=== PATIENT | male | born 1950 | race Caucasian/White ===

== ENCOUNTER 2017-01-10 13:05 | Emergency (ER) | payer MEDICARE ==
[~2017-01-10] VITALS: Ht 180.3 cm; Wt 93.2 kg
[~2017-01-10 13:05] MED LIST: ALBU8.5H2 IH; HYDR30CR57 RC; LOSA1TAB69 PO; NABU500T PO; OMEG-38 PO; RISP1SOL PO; TERA5CAP6 PO
[2017-01-10 13:25] VITALS: BP 137/68; PULSE 52; RESP 18; O2SAT 96
--- NOTE | 2017-01-10 13:27 | ED.REPORT ---
HPI-General Illness Date of Service Jan 10, 2017 ED Provider: Dr. Dominguez Sánchez The patient is a 66 year old female with history of epilepsy who presents to the emergency department complaining of dizziness that began 2-3 weeks ago. His symptoms were much worse today and he has also experienced nausea. His symptoms are exacerbated with head movement. He denies problem walking, visual changes, numbness, weakness, chest pain, shortness of breath, abdominal pain or diarrhea. He is recently discontinued carbamazepine and started Keppra. This change was made to prevent a potential side effect of the carbamazepine. His last seizure was over 1 year ago. He denies any recent illnesses. Nursing Notes Stated Complaint: NAUSEA/DIZZY Chief Complaint: General Complaint Nursing Notes Reviewed: Yes Allergies: Coded Allergies: No Known Drug Intolerances (Verified Allergy, Unknown, 02/10/15) Scheduled Losartan/HCTZ 50-12.5 mg (Losartan/HCTZ 50-12.5 mg) 1 Each Tablet 1 EACH PO DAILY Nabumetone (Nabumetone) 500 Mg Tablet 500 MG PO DAILY Risperidone (Risperidone) 1 Mg/1 Ml Solution 1 MG PO TID Terazosin (Terazosin) 5 Mg Capsule 5 MG PO HS Scheduled PRN Albuterol HFA (Proair HFA) 8.5 Gm Hfa.aer.ad 2 PUFFS IH Q4 PRN PRN For Shortness of Breath Miscellaneous Medications Hydrocortisone (Proctocream-Hc) 30 Gm Cream.appl 30 GM RC [place]-3/Dha/Epa/Fish Oil (Fish Oil 1,000 mg Softgel) 1 Each Capsule 1 EACH PO General Time Seen by MD: 13:26 Chief Complaint Dizziness Hx Obtained From: Patient Arrived By: Walk-in Sudden in Onset?: No Onset Occurred: More than a week ago... Symptom Duration: Since onset Severity: Current: No pain currently Severity: Maximum: No pain Recent Healthcare: No recent hospitalization Similar Sx Previous: No Past Medical History Past Medical History Notes: Neurologist: Dr. Espinoza Past Medical History Epilepsy Bipolar disorder BPH with obstruction Hypertension Arthritis Family History Noncontributory Smoking History Never Smoker Social History Other Social History: Good social support, Local resident Ambulatory Status Independent Review of Systems Full Review of Systems Constitutional: Denies: Chills, Fever Ears / Nose / Throat: Denies: Nasal congestion Respiratory: Denies: Non-productive cough, Shortness of breath Cardiovascular: Denies: Chest pain GI: Reports: Nausea, Denies: Abdominal pain, Diarrhea Neurologic: Reports: Dizziness, Denies: Headache, Numbness, Problem walking, Vision change, Weakness Complete sys rev & neg: except as marked. Physical Exam Vital Signs Vital Signs Date Time Temp Pulse Resp B/P Pulse Ox O2 Delivery O2 Flow Rate FiO2 01/10/17 13:25 36.9 52 18 137/68 96 Room Air Initial VS: Reviewed Head / Eyes: Atraumatic, Normocephalic, PERRL Neck: Supple, Non-tender, Full range of motion Respiratory: Breath sounds normal, Clear to auscultation, No respiratory distress Cardiovascular: Regular rate & rhythm, Heart sounds normal, Intact distal pulses Abdomen / GI: Soft, Non-tender, No guarding, No rebound, No distention Lymphatic: No lymphadenopathy Extremities: Vascular intact, Neuro intact, No swelling, No tenderness Skin: Warm, Dry, No cyanosis Psychiatric: Mood/affect normal, Behavior normal, Normal thought content General/Constitutional: Awake, Alert, Cooperative ENT: Atraumatic, Airway patent, Mucous membranes moist, Tympanic membs NL, Ext aud canal NL, Mastoid area NL Neurologic: Oriented X3, Speech NL, No motor deficits, No sensory deficits, CN II - XII intact, Memory NL 5/5 strength to all 4 extremities. Vertigo with lateral movement of the head. Distinctly abnormal antalgic gait. Interpretation & Diagnostics Lab Results Interpretation Result Diagram: 01/10/17 1350 01/10/17 1350 Test 01/10/17 13:50 White Blood Count 9.1th/mm3 (3.8-10.1) Red Blood Count 4.60mil/mm3 (4.40-5.80) Hemoglobin 13.9g/dL (13.8-17.2) Hematocrit 41.3% (41.0-50.0) Mean Corpuscular Volume 89.8fL (81-100) Mean Corpuscular Hemoglobin 30.2pg (27.0-35.0) Mean Corpuscular Hemoglobin Concent 33.7% (32.0-37.0) Red Cell Distribution Width 12.6% (12.3-15.4) Platelet Count 193bil/L (150-400) Neutrophils (%) (Auto) 85.9% (40-74) Lymphocytes (%) (Auto) 8.7% (14-46) Monocytes (%) (Auto) 5.0% (4-12) Eosinophils (%) (Auto) 0% (0-5) Basophils (%) (Auto) 0.2% (0-3) Sodium Level 139mEq/L (134-144) Potassium Level 4.2mEq/L (3.5-5.2) Chloride Level 101mEq/L (97-108) Carbon Dioxide Level 22mmol/L (18-29) Blood Urea Nitrogen 18mg/dL (8-27) Creatinine 0.70mg/dL (0.76-1.27) Estimat Glomerular Filtration Rate 119mL/min (>59) Glucose Level 133mg/dL (60-99) Calcium Level 9.1mg/dL (8.5-10.1) Total Bilirubin 0.2mg/dL (0.0-1.2) Aspartate Amino Transf (AST/SGOT) 19U/L (0-50) Alanine Aminotransferase (ALT/SGPT) 19U/L (0-44) Alkaline Phosphatase 76U/L (25-160) Total Protein 6.4g/dL (6.4-8.4) Albumin 4.0g/dL (3.4-5.0) Hold [place] Top Tube Received (Received) ECG Interpretation ECG Interpretation: Sinus bradycardia with a rate of 49 Time: 13:51 Interpreted by: ED physician Re-Eval/Medical Decision Source of Hx: Old records Time of Eval: 14:09 Re-Evaluation/Progress Note: Unsteady on feet. Distinctly abnormal gait. Needs to hold on for balance. Will fall if I do not hold him up. Discussed plan for MRI. He understands and agrees with plan. Counseled Regarding: Diagnosis, Lab results Discharge & Departure Shift Change Sign-Out Patient Care Transferred: Yes Discussed Complaint(s): Yes Laboratory Evaluation: Lab evaluation discussed Imaging Studies: Imaging discussed (Awaiting MRI results. ) Primary Impression: Vertigo Disposition: Home Discharge Condition All VS Reviewed: Yes Condition: Stable Referrals: Jethro Bailey MD (PCP) Senait Espinoza MD Care Transferred to: Dr. Hook Care Transferred at: 15:00 Scribe Attestation Portions of this note were transcribed by Radha Bocanegra. I, Dr. Sánchez personally performed the history, physical exam and medical decision-making; I reviewed and confirmed the accuracy of the information in the transcribed note. Signed by: Walt Thomas, 01/10/2017 at 1430. copies to: Senait Espinoza MD; Jethro Bailey MD, Kirk H MD Jan 10, 2017 13:27 Radha Bocanegra Jan 10, 2017 13:30 Anjelica Yuan Jan 10, 2017 14:10 copies to: Senait Espinoza MD; Jethro Bailey MD, Kirk H MD Jan 10, 2017 13:27 Radha Bocanegra Jan 10, 2017 13:30 Anjelica Yuan Jan 10, 2017 14:10
[2017-01-10 13:56] LABS: BASOPHILS % (AUTO) 0.2 % (0-3); EOSINOPHILS % (AUTO) 0 % (0-5); Mean Corpuscular Hemoglobin 30.2 pg (27.0-35.0); Mean Corpuscular Volume 89.8 fL (81-100); NEUTROPHILS % (AUTO) 85.9 % (40-74); Platelet Count 193 bil/L (150-400)
[2017-01-10 15:30] VITALS: BP 141/68; PULSE 60; RESP 20; O2SAT 99
[2017-01-10 17:10] VITALS: BP 150/72; PULSE 63; O2SAT 94
--- NOTE | 2017-01-10 17:38 | DRSVH ---
PROCEDURE: MRI STROKE PROTOCOL ([id number]) Pre- and post-contrast brain MRI, non-contrast brain MR angiogram, pre- and postcontrast neck MR paddy ogram INDICATIONS: 66 year-old male with history of epilepsy presenting with dizziness for 2-3 weeks with w orsening today. TECHNIQUE: Brain: Noncontrast axial T1 spin echo, axial T2 fast spin echo, sagittal and axial FLAIR, coronal T2 fast spin echo, axial gradient echo, axial diffusion and ADC through the brain. After the administr ation of contrast, axial 3D VIBE of the cranial vasculature and brain. Brain MRA: Non-contrast 3-D time of flight MR angiogram, with multiple gjpsmdg-ieavwtnme-vyzjvsnalg (MIP) reformats performed. Neck MRA: Axial and sagittal TruFISP through the neck. Coronal dynamic MR angiogram during administ ration of contrast in the arterial and venous phases, with 3-dimenstional dyigypv-korhxxlys-gioppyank n (MIP) reformats constructed from subtraction images. COMPARISON: None. FINDINGS: Image quality: Excellent. BRAIN: CSF spaces: There is mild cerebral volume loss with prominence of the ventricles and sulci. Basal c isterns are patent. No extra-axial fluid collections. Brain: Diffusion weighted images demonstrate no acute infarcts. Gruber-white matter interface is pres erved. No intracranial hemorrhage, mass, or mass effect. There are bilateral foci of subcortical an d periventricular white matter T2 hyp at erintensity consistent with uqpl-yi-kahiffhq chronic small v essel ischemic changes. Brainstem appears normal. Normal intravascular flow voids are present. No a bnormal intracranial enhancement. Skull and face: Calvarial marrow signal is normal. Orbits appear normal. Sinuses: Sinuses and mastoids are clear. BRAIN MR ANGIOGRAM: Anterior circulation: Intracranial internal carotid arteries are normal in size and enhancement. Th e flow within the paired anterior cerebral arteries is normal and symmetric. The flow within the mid dle cerebral arteries is normal and symmetric. The anterior communicating artery is seen. No stenos es, occlusions, or aneurysms. Posterior circulation: The visualized portions of the vertebral arteries are patent bilaterally and join to form a normal appearing basilar artery. The flow within the posterior cerebral arteries is n ormal and symmetric. No high-grade stenoses, occlusions, or aneurysms. No focal caliber changes or definite interval flap to suggest dissection. NECK MR ANGIOGRAM: Carotids: Great vessels demonstrate conventional anatomy as they arise from the aortic arch. The or igins of the common carotid arteries appear patent. The calibers and courses of both common carotid arteries are normal. The bifurcation regions appear normal bilaterally. The carotid bulbs are widel y patent. The internal carotid arteries demonstrate normal course and caliber. Posterior circulation: The origins of the vertebral arteries appear patent. More superior portions of both vertebral arteries demonstrate normal course and caliber, and join to form a normal appearing basilar artery. No focal caliber change or definite high-grade stenosis. Miscellaneous: Subclavian arteries appear patent. Pre-contrast images through the neck show no soft tissue abnormalities. IMPRESSION: BRAIN MRI: 1. No evidence of infarct or other acute intracranial abnormality. 2. Mild to moderate chronic white matter small vessel ischemic changes and mild cerebral volume loss . BRAIN MR ANGIOGRAM: 1. No high-grade stenosis or occlusion of the central intracranial arteries. NECK MR ANGIOGRAM: 1. No high-grade stenosis or occlusion of the head and neck arteries. Specifically, the vertebral a rteries appear patent bilaterally without definite focal caliber change or other evidence of dissecti on. The estimate of stenosis included in the report of the imaging study was calculated using the NASCET method Dictated by: George Brasher M.D. on 01/10/2017 at 17:28 Approved by: George Brasher M.D. on 01/10/2017 at 17:36
[2017-01-10] MEDS ORDERED: MECL-114 PO (18:04)
[2017-01-10 18:14] VITALS: BP 170/76; PULSE 65; O2SAT 95
== END 2017-01-10 18:16 | disposition home or self-care (01) ==
LOC: SED 13:05
DX: R42 Dizziness and giddiness (principal); I67.82 Cerebral ischemia; G31.9 Degenerative disease of nervous system, unspecified; I10 Essential (primary) hypertension
CPT/HCPCS: 36415; 70549; 70553; 80053; 85025; 93005; 99284; A9585; G0463

== ENCOUNTER 2017-03-30 21:22 | Emergency (ER) | payer MEDICARE ==
[~2017-03-30] VITALS: Ht 180.3 cm; Wt 95.4 kg
[~2017-03-30 21:22] MED LIST changes: +MECL-114 PO
[2017-03-30 21:30] VITALS: BP 137/81; PULSE 61; RESP 17; O2SAT 95
--- NOTE | 2017-03-30 22:00 | ED.REPORT ---
HPI-General Illness Date of Service Mar 30, 2017 ED Provider: Sergo Armstrong MD A 67 year old male with a history of epilepsy, bipolar disorder and hypertension is brought to the ED via EMS due to seizures. Per pt's , he had several seizures today beginning at 14:25 and getting progressively worse throughout the day. He had several fairly severe seizures tonight while sitting in a chair. The pt does not remember these episodes but did not injure himself and denies diarrhea or fever. He had a medication change in 11/2016 from Carbamazepine to Keppra, but switched back to Carbamazepine three days ago due to side effects. He did not take his medication this morning. Nursing Notes Stated Complaint: SEIZURES Chief Complaint: Seizure Nursing Notes Reviewed: Yes Allergies: Coded Allergies: No Known Drug Intolerances (Verified Allergy, Unknown, 02/10/15) Scheduled Losartan/HCTZ 50-12.5 mg (Losartan/HCTZ 50-12.5 mg) 1 Each Tablet 1 EACH PO DAILY Nabumetone (Nabumetone) 500 Mg Tablet 500 MG PO DAILY Risperidone (Risperidone) 1 Mg/1 Ml Solution 1 MG PO TID Terazosin (Terazosin) 5 Mg Capsule 5 MG PO HS Scheduled PRN Albuterol HFA (Proair HFA) 8.5 Gm Hfa.aer.ad 2 PUFFS IH Q4 PRN PRN For Shortness of Breath Meclizine (Bonine) 25 Mg Tab.chew 25 MG PO ASDIRECTED PRN PRN For Dizziness Miscellaneous Medications Hydrocortisone (Proctocream-Hc) 30 Gm Cream.appl 30 GM RC [place]-3/Dha/Epa/Fish Oil (Fish Oil 1,000 mg Softgel) 1 Each Capsule 1 EACH PO General Time Seen by MD: 22:00 Chief Complaint Seizure Hx Obtained From: Patient, Spouse, EMS Arrived By: Ambulance Sudden in Onset?: Yes Onset Occurred: 5 - 8 hours ago Symptom Duration: Intermittent Recent Healthcare: Recent doctor visit, Recent hospitalization Similar Sx Previous: Yes Past Medical History Past Medical History Notes: Neurologist: Dr. Espinoza Past Medical History Epilepsy Bipolar disorder BPH with obstruction Hypertension Arthritis Past Surgical History Reports: Appendectomy Family History Noncontributory Smoking History Never Smoker Social History Other Social History: Good social support, , Local resident Ambulatory Status Independent Review of Systems Full Review of Systems Constitutional: Denies: Fever Respiratory: Denies: Non-productive cough, Shortness of breath Cardiovascular: Denies: Chest pain GI: Denies: Diarrhea, Vomiting Skin: Denies Rash Neurologic: Reports: Seizure Complete sys rev & neg: except as marked. Physical Exam Vital Signs Vital Signs Date Time Temp Pulse Resp B/P Pulse Ox O2 Delivery O2 Flow Rate FiO2 03/31/17 00:58 36.7 72 17 123/57 98 Room Air 03/30/17 22:55 36.7 57 17 128/68 95 Room Air 03/30/17 21:30 36.9 61 17 137/81 95 Room Air Initial VS: Reviewed General/Constitutional: Awake, Alert post ictal slightly confused Head / Eyes: Atraumatic, Normocephalic, PERRL, EOMI ENT: Atraumatic, Airway patent, Mucous membranes moist Neck: Atraumatic, Supple, Full range of motion Respiratory / Chest: Atraumatic, Breath sounds NL, Breath sounds = bilat, No respiratory distress Cardiovascular: Heart rate NL, Regular rhythm, Heart sounds NL Abdomen: Atraumatic, Soft, Non-tender Back: Atraumatic, Full range of motion Upper Extremities Upper Extremity / MS: Atraumatic, Full range of motion Lower Extremity / Pelvis / MS: Atraumatic, Full range of motion Skin: Atraumatic, Color NL, No rash, Warm, Dry Neurologic: No motor deficits, No sensory deficits post ictal Psychiatric: Mood NL Interpretation & Diagnostics Lab Results Interpretation Result Diagram: 03/30/17213903/30/172139 Test 03/30/17 21:40 03/30/17 22:55 03/30/17 23:16 White Blood Count 9.2th/mm3 (3.8-10.1) Red Blood Count 4.83mil/mm3 (4.40-5.80) Hemoglobin 14.8g/dL (13.8-17.2) Hematocrit 42.9% (41.0-50.0) Mean Corpuscular Volume 88.8fL (81-100) Mean Corpuscular Hemoglobin 30.6pg (27.0-35.0) Mean Corpuscular Hemoglobin Concent 34.5% (32.0-37.0) Red Cell Distribution Width 12.7% (12.3-15.4) Platelet Count 231bil/L (150-400) Neutrophils (%) (Auto) 62.4% (40-74) Lymphocytes (%) (Auto) 26.0% (14-46) Monocytes (%) (Auto) 9.2% (4-12) Eosinophils (%) (Auto) 1.6% (0-5) Basophils (%) (Auto) 0.4% (0-3) Hold Purple Top Tube Received (Received) Prothrombin Time 10.4sec (8.1-12.5) Prothromb Time International Ratio 0.97ratio Hold Blue Top Tube Received (Received) Sodium Level 139mEq/L (134-144) Potassium Level 4.0mEq/L (3.5-5.2) Chloride Level 99mEq/L (97-108) Carbon Dioxide Level 22mmol/L (18-29) Blood Urea Nitrogen 19mg/dL (8-27) Creatinine 0.88mg/dL (0.76-1.27) Estimat Glomerular Filtration Rate 91mL/min (>59) Glucose Level 133mg/dL (60-99) Calcium Level 9.7mg/dL (8.5-10.1) Total Bilirubin 0.2mg/dL (0.0-1.2) Aspartate Amino Transf (AST/SGOT) 19U/L (0-50) Alanine Aminotransferase (ALT/SGPT) 18U/L (0-44) Alkaline Phosphatase 78U/L (25-160) Total Protein 7.2g/dL (6.4-8.4) Albumin 4.5g/dL (3.4-5.0) Hold [place] Top Tube Received (Received) Carbamazepine (Tegretol) Level 9.9ug/mL (4.0-12.0) Hold Baker Top Tube Received (Received) ECG Interpretation ECG Interpretation: normal sinus rhythm with a rate of 58 Time: 22:23 Interpreted by: ED physician X-Ray Chest Interpretation Chest Xray Interpretation: no acute findings Interpretation / Wet Read by: Wet read ED physician Re-Eval/Medical Decision Med Decision/Clinical Course 67-year-old with known epilepsy missed a dose of Tegretol today and had several seizures at home. He was given four tablets as a makeup dose per his doctor's instructions, and presents here without seizures, and with a therapeutic drug level. He is given a single additional dose of 200 mg and is discharged now for follow-up with PCP or prompt return here if repetitive seizures over the weekend. He was intolerant of Keppra and recently weaned off Keppra back to Tegretol. Motivation for weaning from Tegretol was concerned about osteoporosis from long-term use. However, he was not able to tolerate Keppra at all Source of Hx: Old records Time of Eval: 00:33 Patient Status: Condition improved Re-Evaluation/Progress Note: Pt rechecked, who is resting comfortably. The diagnosis and plan for discharge are discussed. The pt understands and agrees with the plan. All questions are addressed at this time. Counseled Regarding: Diagnosis, Lab results, Need for follow-up, When/why to return to ED Discharge & Departure Primary Impression: Seizure Disposition: Home Discharge Condition All VS Reviewed: Yes Condition: Stable Patient Instructions: Carbamazepine (By mouth), Epilepsy (ED) Additional Instructions: Resume your carbamazepine at the prescribed dose. Do not miss doses. Return if you continue having seizures despite high therapeutic level of carbamazepine. Follow-up with your doctor in the office this week Referrals: Jethro Bailey MD (PCP) Gene Attestation Portions of this note were transcribed by Jhonathan Wheeler. I, Dr. Armstrong personally performed the history, physical exam and medical decision-making; I reviewed and confirmed the accuracy of the information in the transcribed note. Signed by: Walt Garsia, 03/31/2017 and 0046. copies to: Jethro Bailey MD, Christopher W MD Mar 30, 2017 22:00 JHONATHAN WHEELER Mar 30, 2017 22:14
[2017-03-30 22:28] LABS: BASOPHILS % (AUTO) 0.4 % (0-3); EOSINOPHILS % (AUTO) 1.6 % (0-5); MONOCYTES % (AUTO) 9.2 % (4-12); Mean Corpuscular Hemoglobin 30.6 pg (27.0-35.0); Mean Corpuscular Volume 88.8 fL (81-100); NEUTROPHILS % (AUTO) 62.4 % (40-74); Platelet Count 231 bil/L (150-400)
[2017-03-30 22:32] LABS: INR 0.97 ratio
[2017-03-30 22:55] VITALS: BP 128/68; PULSE 57; RESP 17; O2SAT 95
[2017-03-31] MEDS ORDERED: carBAMazepine 200 mg Tablet PO ONE (00:35)
[2017-03-31 00:58] VITALS: BP 123/57; PULSE 72; RESP 17; O2SAT 98
--- NOTE | 2017-03-31 11:20 | DRSVH ---
PROCEDURE: X-RAY CHEST ONE VIEW, PORTABLE ([id number]) INDICATIONS: seizure TECHNIQUE: One view of the chest was acquired. COMPARISON: None. FINDINGS: Surgical changes and devices: None. Lungs and pleura: There is a hyperdense nodular density projecting at the left midlung zone. No pleu ral effusions or pneumothorax. Lungs are clear. Mediastinum: Mediastinal contours appear normal. Heart size is normal. Bones and chest wall: No suspicious bony lesions. Overlying soft tissues appear unremarkable. Mult iple old left rib fractures are noted. IMPRESSION: 1. No acute cardiopulmonary disease. 2. A hyperdense nodular density projecting to the left midlung zone. This could represent a granuloma or density in the inferior tip of scapula. A standard 2 view chest radiograph is recommended for [facility] [place]. Dictated by: Pb Alberto M.D. on 03/31/2017 at 11:17 Approved by: Pb Alberto M.D. on 03/31/2017 at 11:18
== END 2017-03-31 00:59 | disposition home or self-care (01) ==
LOC: SED 21:22
DX: G40.909 Epilepsy, unspecified, not intractable, without status epilepticus (principal); I10 Essential (primary) hypertension; F31.9 Bipolar disorder, unspecified